=== PATIENT | male | born 1955 | race Caucasian/White ===

== ENCOUNTER → 2024-04-23 09:05 | Outpatient (REF) | payer MEDICARE, OTHER, SELFPAY | LOC: RAD 09:05 | PROVIDERS: ATTENDING PHYSICIAN Hospitalist | DX: Z13.6 Encounter for screening for cardiovascular disorders (principal) | CPT/HCPCS: 76770 ==

== ENCOUNTER 2024-09-11 06:25 | Day surgery (SDC) | payer MEDICARE, OTHER, SELFPAY | END 2024-09-11 10:48 | disposition home or self-care (01) | LOC: GI 06:25 | PROVIDERS: ATTENDING PHYSICIAN Internal Medicine Gastroenterology; FAMILY PHYSICIAN Hospitalist | DX: Z12.11 Encounter for screening for malignant neoplasm of colon (principal); K64.8 Other hemorrhoids; K57.30 Diverticulosis of large intestine without perforation or abscess without bleeding; D12.4 Benign neoplasm of descending colon; D12.3 Benign neoplasm of transverse colon; K62.1 Rectal polyp; Z86.0100 Personal history of colon polyps, unspecified | CPT/HCPCS: 45385; 45380; 88305 ==

== ENCOUNTER → 2024-11-26 09:28 | Outpatient (REF) | payer MEDICARE, OTHER, SELFPAY | LOC: RAD 09:28 | PROVIDERS: ATTENDING PHYSICIAN Hospitalist | DX: M79.671 Pain in right foot (principal) | CPT/HCPCS: 73630 ==

== ENCOUNTER → 2025-02-22 09:09 | Outpatient (REF) | payer MEDICARE, OTHER, SELFPAY | LOC: MRI 09:09 | PROVIDERS: ATTENDING PHYSICIAN Podiatrist Foot & Ankle Surgery | DX: M79.671 Pain in right foot (principal) | CPT/HCPCS: 73718 ==